=== PATIENT | female | born 1990 | race Caucasian/White ===

== ENCOUNTER 2021-04-13 16:11 | Emergency (ER) | payer MEDICAID ==
[~2021-04-13] VITALS: Ht 157.5 cm; Wt 72.6 kg
--- NOTE | 2021-04-13 16:11 | NUR ---
PT [address] C/O SI "I WANT TO RUN THRU TRAFFIC" PT IS AAOX4, NOT IN RESPIRATORY DISTRESS, V/S STABLE, KEPT RESTED AND COMFORTABLE. WILL CONTINUE TO MONITOR.
--- NOTE | 2021-04-13 16:21 | NUR ---
PT SEEN AND EXAMINED BY RENATO SANDHU.
--- NOTE | 2021-04-13 16:30 | NUR ---
urine collected and sent to lab.
--- NOTE | 2021-04-13 16:40 | NUR ---
CALLED [facility]ERG[facility]Y [facility]. SPOKE WITH CUSTOMER MANAGER [phone]
--- NOTE | 2021-04-13 16:56 | NUR ---
ER PHLEB AT BEDSIDE FOR BLOOD DRAW.
[2021-04-13 17:16] LABS: BILIRUBIN,URINE Negative (NEGATIVE); COLOR,URINE YELLOW (YELLOW); LEUKOCYTE ESTERASE ,URINE Negative (NEGATIVE); NITRITE, URINE Negative (NEGATIVE); PH,URINE 5.5 (5.0-8.0); PROTEIN,URINE 30 mg/dl (NEGATIVE); UGLUCOSE Negative (NEGATIVE); UROBILINOGEN,URINE 0.2 EU/dL (0.2)
[2021-04-13 17:29] LABS: BASOPHILS # (AUTO) 0.1 K/uL (0.0-0.2); BASOPHILS % (AUTO) 0.9 % (0.0-2.0); EOSINOPHILS % (AUTO) 2.1 % (0.0-6.0); HEMATOCRIT 42 % (33-45); HEMOGLOBIN 14.5 g/dL (11.5-14.8); LYMPHOCYTES # (AUTO) 3.6 K/uL (0.8-4.8); LYMPHOCYTES % (AUTO) 41.2 % (20.0-44.0); MEAN CORPUSCULAR HGB CONC 34 g/dl (31.0-36.0); MEAN CORPUSCULAR VOLUME 91 fL (82-100); MONOCYTES # (AUTO) 0.6 K/uL (0.1-1.30); MONOCYTES % (AUTO) 6.7 % (2.0-12.0); NEUTROPHILS # (AUTO) 4.2 K/uL (1.8-8.9); NEUTROPHILS % (AUTO) 49.1 % (43.0-81.0); PLATELET COUNT (AUTO) 260 K/uL (150-450); RED BLOOD CELL COUNT(AUTO) 4.63 MIL/uL (4.0-5.2); WHITE BLOOD COUNT (AUTO) 8.6 K/uL (4.3-11.0)
[2021-04-13 17:48] LABS: CALCIUM, SERUM 8.9 mg/dL (8.5-10.1); CREATININE 1.1 mg/dL (0.6-1.3); POTASSIUM 3.3 mmol/L (3.5-5.1)
[2021-04-13 17:54] LABS: ALBUMIN 3.8 g/dL (3.4-5.0); BILIRUBIN,DIRECT 0.1 mg/dL (0.0-0.2); BILIRUBIN,TOTAL 0.2 mg/dL (0.2-1.0); TOTAL PROTEIN, SERUM 7.6 g/dL (6.4-8.2)
[2021-04-13 18:06] LABS: BACTERIA,URINE 1+ /HPF (None Seen); WBC,URINE 0-2 /HPF (0-3)
[2021-04-13] MEDS ORDERED: POTASSIUM CHLORIDE 20 MEQ TAB.PRT.SR PO ONE ×2 (18:30→18:35)
--- NOTE | 2021-04-13 19:36 | NUR ---
PAGED JOSE DANIEL FOR CRISIS EVAL. NO ANSWER. MESSAGE LEFT, WILL CALL BACK.
--- NOTE | 2021-04-13 20:33 | NUR ---
SPOKE WITH JOSE DANIEL, SHE WILL BE HERE IN 1 HOUR.
--- NOTE | 2021-04-13 21:57 | NUR ---
JOSE DANIEL FROM CRISIS TEAM AT BED SIDE SPEAKING TO THE PT
--- NOTE | 2021-04-13 23:33 | NUR ---
pt is stable for d/c per PA and the crisis team. Patient discharged to home in stable condition. Written and verbal after care instructions given. Patient verbalizes understanding of instruction.
[2021-04-13 23:34] VITALS: BP 109/70
== END 2021-04-13 23:34 | disposition home or self-care (01) ==
LOC: ER 16:14
DX: R45.851 Suicidal ideations (principal); Z59.0 Homelessness; I45.6 Pre-excitation syndrome; L55.0 Sunburn of first degree; E87.6 Hypokalemia; F10.129 Alcohol abuse with intoxication, unspecified; Y90.6 Blood alcohol level of 120-199 mg/100 ml; Z20.822 Contact with and (suspected) exposure to COVID-19; T76.21XA Adult sexual abuse, suspected, initial encounter; Z91.5 Personal history of self-harm; F41.9 Anxiety disorder, unspecified
CPT/HCPCS: 36415; 80048; 80076; 80143; 80307; 80320; 81001; 84703; 85025; 87426; 93005; 99285; C9803; G0480